=== PATIENT | female | born 1945 | race Caucasian/White ===

== ENCOUNTER → 2017-11-15 18:00 | Outpatient (CLI) | payer OTHER | END | disposition home or self-care (01) | LOC: D.MAMMO 10:15 | DX: Z12.31 Encounter for screening mammogram for malignant neoplasm of breast (principal) ==

== ENCOUNTER 2019-09-03 19:10 | Outpatient (CLI) | payer OTHER | END 2019-09-03 23:59 | disposition home or self-care (01) | LOC: D.MAMMO 19:10 | PROVIDERS: ATTEND Family Medicine | DX: Z12.31 Encounter for screening mammogram for malignant neoplasm of breast (principal) ==